=== PATIENT | female | born 1990 ===

== ENCOUNTER 2016-09-07 00:32 | Outpatient (CLI) | payer MEDICAID ==
[2016-09-07 00:52] VITALS: BP 122/74
== END 2016-09-07 01:57 | disposition home or self-care (01) ==
LOC: TRG 00:32
PROVIDERS: ATTEND Obstetrics & Gynecology
DX: O47.1 False labor at or after 37 completed weeks of gestation (principal); Z3A.38 38 weeks gestation of pregnancy

== ENCOUNTER 2016-09-25 20:26 | Inpatient (IN) | payer MEDICAID ==
[2016-09-25] MEDS ORDERED: MINERAL OIL PO PRN (22:22)
[2016-09-25] MEDS ORDERED: NARCAN 0.4 MG/1 ML IV PRN (22:22)
[2016-09-25] MEDS ORDERED: XYLOCAINE 2% INFILTRATI ONE (22:22)
[2016-09-25] MEDS ORDERED: SUBLIMAZE IV PRN (22:22)
[2016-09-25] MEDS ORDERED: CERVIDIL VG ONE (22:22)
[2016-09-25] MEDS ORDERED: ZOFRAN IV PRN (22:22)
[2016-09-25] MEDS ORDERED: ePHEDrine SULFATE IV PRN (22:22)
[2016-09-25] MEDS ORDERED: STADOL IV PRN (22:22)
[2016-09-25] MEDS ORDERED: BRETHINE SUB-Q PRN (22:22)
[2016-09-25] MEDS ORDERED: BRETHINE IVP PRN (22:22)
--- NOTE | 2016-09-25 22:29 | History and Physical Report ---
History of Present Illness Date of examination: 09/25/16 Date of admission: 09/25/16 20:26 Chief complaint: 25 yo A1 at 41 wk +4 d. Known GBS neg, MBT AB pos, Rub Im. Admitted for induction of labor for post dates. History of present illness: Remainder of H&P from Missed period visit and confirmed today. OB Intake Ethnicity: Vital Signs Height: 64 in. Weight (lb): 175 BMI: 30.1 Pre- Weight: 194 BP: 116/ 68 mm Hg Ur. Protein: Negative Ur. Glucose: Negative Chief Complaint/Current Status: c/o missed period...................igarcia pt c/o cramping not much water... Menstrual History Regularity: regular Menses every: 28 days Duration: 6 LMP: 11/2015 LMP reliability: month known LMP character: normal test type: urine test Date: 04/04/2016 BC at conception: none Planned ? no EDC Calculations EDC Confirmation: 09/14/2016 Gestational Age: 16 5/7 weeks Past History : 3 Term Births: 1 Premature Births: 0 Living Children: 1 Para: 1 Mult. Births: 0 Prev : 0 Prev. attempt? 0 Aborta: 1 Elect. Ab: 0 Spont. Ab: 1 Ectopics: 0 # 1 Delivery date: 2009 Weeks Gestation: 41 Delivery type: Delivery location: [place] Infant Sex: Female weight: 5#14 Comments: elevated b/p # 2 Delivery date: 2014 Weeks Gestation: 8 Delivery type: SAB Comments: no D&C Past Medical History: Abnormal Pap Smear 2014 Past Surgical History: negative Past Medical History Anesthesia Complications: negative Anemia: negative Autoimmune Disorder: negative Bleeding Disorder: negative Blood Transfusions: negative Breast Disease: negative Diabetes: negative Heart Disease: negative Hypertension: negative Hepatitis/Liver Disease: negative Kidney Disease/UTI: negative Neurologic/Epilepsy/Migraines: negative Phlebitis/Varicosities: negative Psychiatric: negative Pulmonary Disease/Asthma: negative Thyroid Disease: negative Hospitalizations: negative Surgery (Non-vertical roll operator): negative Abnormal PAP: positive, 2014, normal 2015 IZAIAH Exposure: negative Infertility: negative Uterine Anomaly: negative Uterine Surgery (not C/S): negative Other Gynecologic Problems: negative Family Hx: mother & maternal uncle - DM Infection History Hx of STD: none HIV Risk Eval: low risk Hepatitis B Risk Eval: low risk Personal hx. of genital herpes: no Partner hx. of genital herpes: no Rash, Viral, or Febrile illness since last LMP? no Varicella/Chicken Pox Status: Immunized TB Risk: no Genetic History Congenital Heart Defect: Mom: no Dad: no Oumar Disease: Mom: no Dad: no Thalassemia Mom: no Dad: no Neural Tube Defect Mom: no Dad: no Down's Syndrome Mom: no Dad: no Ino-Sachs Mom: no Dad: no Sickle Cell Disease/Trait Mom: no Dad: yes Comments: FOB - sister has trait Hemophilia Mom: no Dad: no Muscular Dystrophy Mom: no Dad: no Cystic Fibrosis Mom: no Dad: no [place] Chorea Mom: no Dad: no Mental Retardation Mom: no Dad: no Fragile X Mom: no Dad: no Other Genetic/Chromosomal Disorder Mom: no Dad: no Child w/other defect Mom: no Dad: no Enviromental Exposures Xray Exposure: no Medication, drug, or alcohol use since LMP: no Chemical/Other Exposure: no Exposure to Cat Liter: no Hx of Parvovirus (Fifth Disease): no Occupational Exposure to Children: none Active Medications (reviewed today): None Current Allergies: No known allergies Laboratory Results Routine Urinalysis Leukocytes: 1+ Nitrite: negative Urobilinogen: negative Protein: Negative Blood: hemolyzed trace Ketone: smal (15) Bilirubin: negative Glucose: Negative Urine HCG: positive Review of Systems General Denies fever, chills, sweats, anorexia, fatigue, weakness, malaise, weight loss and sleep disorder. Denies nausea, vomiting, headache, swelling of legs, abdominal pain, vaginal discharge, vaginal bleeding and contractions. Denies vaginal discharge, incontinence, dysuria, hematuria, urinary frequency, amenorrhea, menorrhagia, abnormal vaginal bleeding, pelvic pain, genital sores, decreased libido, painful periods, painful sex, urinary urgency, hot flashes, vaginal dryness, vaginal itching and vaginal odor. CV Denies chest pains, palpitations, syncope, dyspnea on exertion, orthopnea, PND and peripheral edema. Resp Denies cough, dyspnea at rest, excessive sputum, hemoptysis, wheezing and pleurisy. GI Denies nausea, vomiting, diarrhea, constipation, change in bowel habits, abdominal pain, melena, hematochezia, jaundice, gas/bloating, indigestion/ heartburn, dysphagia and odynophagia. Endo Denies cold intolerance, heat intolerance, polydipsia, polyphagia, polyuria and unusual weight change. Breast Denies left breast lump, right breast lump, nipple discharge, bloody discharge from nipple, breast pain, abnormal mammogram and breast enlargement. MS Denies back pain, joint pain, joint swelling, muscle cramps, muscle weakness, stiffness, arthritis, sciatica, restless legs, leg pain at night and leg pain with exertion. Derm Denies rash, itching, dryness and suspicious lesions. Neuro Denies paralysis, paresthesias, headache, seizures, tremors, vertigo, transient blindness, frequent falls, frequent headaches and difficulty walking. Psych Denies depression, anxiety, irritability and mood swings. Eyes Denies blurring, diplopia, irritation, discharge, vision loss, eye pain and photophobia. ENT Denies earache, ear discharge, tinnitus, decreased hearing, nasal congestion, nosebleeds, sore throat and hoarseness. Allergy Denies urticaria, allergic rash, hay fever and recurrent infections. Heme Denies abnormal bruising, bleeding and enlarged lymph nodes. PHYSICAL EXAM HEENT: PERRLA, normal conjunctiva, external nose and nasal mucosa normal, oropharynx clear Neck/Thyroid: supple, thyroid normal Skin no significant abnormal lesions or rashes Chest: respiratory effort normal, clear to auscultation Breasts: normal without skin changes or masses CV: regular, normal S1-S2, no murmur, no rub, no gallop Abdomen: normal bowel sounds, soft, nontender, no HSM Musculoskeletal: grossly normal ROM in joints, no joint tenderness or muscle weakness Neuro: grossly normal DTRs, sensation, strength, cranial nerves Extremities: no clubbing, cyanosis, or edema LOT ATTENDANT Exams Vulva/Vagina: No lesions, normal BUS, normal rugae Cervix: No lesions; no cervical motion tenderness Uterus: normal size and position, midline, mobile Fundal Ht: 15 FHT: + Adnexae: no masses or tenderness Rectovaginal: no masses or tenderness Flowsheet View for Follow-up Visit Estimated weeks of gestation: 16 5/7 Weight: 175 Blood pressure: 116 / 68 Urine protein: Negative Urine glucose: Negative Urine nitrite: negative Fundal height: 15 FHR: + Past History - Obstetrical History : 3 Medications and Allergies Allergies Allergy/AdvReac Type Severity Reaction Status Date / Time No Known Allergies Allergy Verified 08/28/15 01:08 Home Medications Medication Instructions Recorded Confirmed Last Taken Type No Known Home Medications [No 09/07/16 09/07/16 Unknown History Reported Home Medications] - Vital Signs Vital signs: Vital Signs Pulse Pulse Ox 105 H 99 09/25/16 21:46 09/25/16 21:46 Temp Pulse Resp BP Pulse Ox 97.4 F L 105 H 14 119/63 98 09/25/16 21:58 09/25/16 22:21 09/25/16 21:58 09/25/16 21:58 09/25/16 22:21 Results Result Diagrams: 09/25/16 23:00 All other labs normal. Assessment and Plan - Patient Problems (1) Post-dates Onset Date: 09/21/16 Current Visit: Yes Status: Acute Qualifiers: Post-term type: 40-42 weeks gestation Qualified Code(s): O48.0 - Post-term Plan to address problem: induction of labor
[2016-09-25] MEDS ORDERED: PITOCin/NS 20 UNIT/1000ML DRIP 20 UNITS/1,000 ML BAG IV SCH (23:00)
[2016-09-25] MEDS ORDERED: LACTATED RINGERS 1,000 ML IV SCH (23:00)
[2016-09-25] MEDS ORDERED: PITOCin/NS 30 UNIT/500ML 30 UNITS/500 ML BAG IV SCH (23:00)
[2016-09-25 23:27] LABS: Hematocrit 26.7 % (30.3-42.9); Hemoglobin 8.5 gm/dl (10.1-14.3); Mean Corpuscular HGB Conc 32 % (30-34); Mean Corpuscular Hemoglobin 22 pg (28-32); Mean Corpuscular Volume 68 fl (79-97); Platelet Count 169 K/mm3 (140-440); Red Blood Count 3.92 M/mm3 (3.65-5.03); Red Cell Distribution Width 17.5 % (13.2-15.2); White Blood Count 8.1 K/mm3 (4.5-11.0)
[2016-09-26] MEDS ORDERED: NARCAN 2 MG/2 ML IV PRN (03:26)
[2016-09-26] MEDS ORDERED: ePHEDrine SULFATE IV PRN (03:26)
--- NOTE | 2016-09-26 03:26 | Anesthesia Consultation ---
Anesthesia Consult and Med Hx Date of service: 09/26/16 - Airway Anesthetic Teeth Evaluation: Good ROM Head & Neck: Adequate Mental/Hyoid Distance: Adequate Mallampati Class: Class II Intubation Access Assessment: Good - Pulmonary Exam CTA: Yes - Cardiac Exam Cardiac Exam: No Murmur - Pre-Operative Health Status ASA Pre-Surgery Classification: ASA2 Proposed Anesthetic Plan: Epidural - Pulmonary Hx Asthma: No COPD: No Hx Pneumonia: No - Cardiovascular System Hx Hypertension: No - Central Nervous System Hx Seizures: No Hx Psychiatric Problems: No - Endocrine Hx Renal Disease: No Hx End Stage Renal Disease: No Hx Hypothyroidism: No Hx Hyperthyroidism: No - Hematic Hx Anemia: No Hx Sickle Cell Disease: No - Other Systems Hx Alcohol Use: No
[2016-09-26] MEDS ORDERED: fentaNYL-BUPIV 2 MCG/ML-0.125% 200 MCG/100 ML BAG EPIDURAL SCH (04:00)
[2016-09-26] MEDS ORDERED: DULCOLAX PR PRN (05:59)
[2016-09-26] MEDS ORDERED: MILK OF MAGNESIA PO PRN (05:59)
[2016-09-26] MEDS ORDERED: TUCKS PAD TP PRN (05:59)
[2016-09-26] MEDS ORDERED: TYLENOL PO PRN (05:59)
[2016-09-26] MEDS ORDERED: NORCO 5/325 PO PRN (05:59)
[2016-09-26] MEDS ORDERED: PHENERGAN PO PRN (05:59)
[2016-09-26] MEDS ORDERED: BENADRYL PO PRN (05:59)
[2016-09-26] MEDS ORDERED: LANSINOH TP PRN (05:59)
[2016-09-26] MEDS ORDERED: SODIUM CHLORIDE FLUSH SYRINGE 10 ML IV PRN (06:00)
--- NOTE | 2016-09-26 06:07 | Procedure Note ---
OB Delivery Note - Delivery Date of Delivery: 09/26/16 Cotton Expert: ELVIE DANGELO Estimated blood loss: 300cc - Vaginal Delivery presentation: vertex Delivery position: OA Intrapartum events: none Delivery induction: cervidil Delivery monitor: external FHT, external uterine Route of delivery: Delivery placenta: spontaneous Delivery cord: 3 umbilical vessels Episiotomy: none Delivery laceration: none Anesthesia: epidural Delivery comments: live born female over intact perineum baby to mom's abdomen skin to skin Placenta and membrane del complete and intact, 3 vessel cord. Pit IVFs 8/9 , EBL 300, Wgt 7-3 Mom and baby remain LDR stable. - Infant A at 1 minute: 8 at 5 minutes: 9 Infant Gender: Female (wgt 7-3)
[2016-09-26] MEDS: COLACE PO SCH ×2 (14:15→21:25)
[2016-09-26] MEDS: MOTRIN PO SCH ×2 (14:15→21:26)
[2016-09-26] MEDS: FEOSOL PO SCH ×2 (14:15→21:25)
[2016-09-26 19:20] LABS: Hemoglobin 8.8 gm/dl (10.1-14.3)
[2016-09-27] MEDS: MOTRIN PO SCH ×2 (04:30→12:37)
[2016-09-27] MEDS ORDERED: M-M-R II VACCINE SUB-Q ONE (05:59)
[2016-09-27] MEDS ORDERED: BOOSTRIX IM ONE (06:00)
--- NOTE | 2016-09-27 06:16 | Discharge Summary ---
Providers - Providers Date of Admission: 09/25/16 20:26 Date of discharge: 09/27/16 (pt agrees with d/c ) Attending physician: LINDSAY GILLILAND Primary care physician: LINDSAY GILLILAND Hospitalization Reason for admission: active labor Delivery: Episiotomy: none Laceration: none Incision: normal Other procedures: none Discharge diagnosis: IUP at term delivered [place] baby: female Hospital course: uncomplicated vaginal delivery Pt resting No c/o voiced VSS FF below umb Lochia small Perineum intact H&H Pt is chronically anemic Pt is asymptomatic RX iron @ d/c Doing well s/p vag delivery P: d/c today with instructions and RX RTO 4 weeks Condition at discharge: Good Disposition: DC-01 TO HOME OR SELFCARE - Discharge Diagnoses (1) Spontaneous vaginal delivery Status: Acute Comment: rto 4 weeks PP care Plan - Discharge Medications Prescriptions: Docusate Sodium [Colace] 100 mg PO BID PRN #60 capsule PRN Reason: Constipation Ferrous Sulfate [Feosol 325 MG tab] 325 mg PO BID #60 tablet Ibuprofen [Motrin 800 MG tab] 800 mg PO TID PRN #30 tablet PRN Reason: Pain - Provider Discharge Summary Activity: routine, no sex for 6 weeks, no heavy lifting 4 weeks, no strenuous exercise Diet: routine Instructions: routine Additional instructions: [] Smoking cessation referral if applicable(refer to patient education folder for contact #) [] Refer to [facility] Booklet Call your doctor immediately for: * Fever > 100.5 * Heavy vaginal bleeding ( >1 pad per hour) * Severe persistent headache * Shortness of breath * Reddened, hot, painful area to leg or breast * Drainage or odor from incision. * Keep incision clean and dry at all times and follow doctor's instructions regarding bathing/showering - Follow up plan Follow up: LINDSAY GILLILAND MD [Primary Care Provider] - 10/27/16 (Congratulations! Please call [phone] to schedule your visit in 4 weeks. Take medications as prescribed. Call with concerns. )
[2016-09-27] MEDS: FEOSOL PO SCH (12:37)
[2016-09-27 13:24] VITALS: BP 108/57
== END 2016-09-27 14:05 | disposition home or self-care (01) | DRG 775 ==
LOC: LD 20:26 → OB 09-26 08:07
PROVIDERS: ADMIT Obstetrics & Gynecology; ATTEND Obstetrics & Gynecology
PROC: 3E0P7GC Introduction of Other Therapeutic Substance into Female Reproductive, Via Natural or Artificial Opening (ICD-10-PCS; principal; 2016-09-26)
PROC: 10E0XZZ Delivery of Products of Conception, External Approach (ICD-10-PCS; 2016-09-26)
PROC: 3E0S3CZ (ICD-10-PCS; 2016-09-26)
PROC: 00HU33Z Insertion of Infusion Device into Spinal Canal, Percutaneous Approach (ICD-10-PCS; 2016-09-26)
PROC: 3E0234Z Introduction of Serum, Toxoid and Vaccine into Muscle, Percutaneous Approach (ICD-10-PCS; 2016-09-27)
DX: O48.0 Post-term pregnancy (principal); O99.02 Anemia complicating childbirth; D64.9 Anemia, unspecified; Z37.0 Single live birth; Z23 Encounter for immunization; Z3A.41 41 weeks gestation of pregnancy
CPT/HCPCS: 36415; 59200; 85014; 85018; 85027; 86850; 86900; 86901; 90707; 99211; A6250; G0463; J0595; J2590; J7120